=== PATIENT | male | born 1990 | race Two or more races ===

== ENCOUNTER 2017-08-02 00:58 | Emergency (ER) | payer SELFPAY ==
[~2017-08-02] VITALS: Ht 170.2 cm; Wt 90.0 kg
[2017-08-02] MEDS ORDERED: HYDROmorphone 1 MG/ML, 1ML ONE (01:14)
[2017-08-02] MEDS ORDERED: KETOROLAC 30 MG/1 ML ONE (01:14)
[2017-08-02] MEDS ORDERED: ONDANSETRON 2MG/ML, 2ML ONE (01:14)
[2017-08-02 01:24] LABS: HEMATOCRIT 49.8 % (39.2-51.8)
[2017-08-02] MEDS ORDERED: SODIUM CHLORIDE FLUSH 10ML SYR IVF ONE (01:30)
[2017-08-02] MEDS ORDERED: HYDROmorphone 1 MG/ML, 1ML IM ONE (01:30)
[2017-08-02] MEDS ORDERED: ONDANSETRON 2MG/ML, 2ML IVPush ONE (01:30)
[2017-08-02] MEDS ORDERED: SODIUM CHLORIDE 0.9% 1,000ML IV ONE (01:30)
[2017-08-02] MEDS ORDERED: KETOROLAC 30 MG/1 ML IVPush ONE (01:30)
[2017-08-02] MEDS ORDERED: HYDROmorphone 1 MG/ML, 1ML IV ONE (01:30)
[2017-08-02 01:34] LABS: ASPARTATE AMINO TRANSFERASE 32 U/L (15-37); BLOOD UREA NITROGEN 11 mg/dL (7-18)
[2017-08-02 01:41] LABS: PATH.CAST-FLAG NOT PRESENT; SPERM-FLAG NOT PRESENT; SRC-FLAG NOT PRESENT; YLC-FLAG NOT PRESENT
[2017-08-02 01:42] LABS: XTAL-FLAG NOT PRESENT
[2017-08-02 02:42] VITALS: BP 106/59
== END 2017-08-02 03:21 | disposition home or self-care (01) ==
LOC: ED 03:10
DX: N20.0 Calculus of kidney (principal)
CPT/HCPCS: 36415; 74176; 80053; 81003; 85025; 96361; 96374; 96375; 99285; J1170; J1885; J2405; J7030

== ENCOUNTER 2019-06-10 20:28 | Emergency (ER) | payer MEDICAID ==
[~2019-06-10] VITALS: Ht 172.7 cm; Wt 86.2 kg
[2019-06-10 20:33] VITALS: BP 128/93
== END 2019-06-10 22:31 | disposition home or self-care (01) ==
LOC: ED 22:00
DX: I80.01 Phlebitis and thrombophlebitis of superficial vessels of right lower extremity (principal); L03.115 Cellulitis of right lower limb
CPT/HCPCS: 99284

== ENCOUNTER 2021-05-17 19:35 | Emergency (ER) | payer MEDICAID ==
[~2021-05-17] VITALS: Ht 172.7 cm; Wt 90.0 kg
[2021-05-17] MEDS ORDERED: DIPH,PERTUSS(ACELL),TET VAC/PF 0.5 ML IM-VACC ONE ×2 (20:47→21:00)
[2021-05-17] MEDS ORDERED: LIDOCAINE-MPF 1%, 5ML ONE (20:47)
[2021-05-17] MEDS ORDERED: LORazepam 1MG TABLET ONE (20:47)
[2021-05-17] MEDS ORDERED: LIDOCAINE 1%, 10ML INFIL ONE (21:00)
[2021-05-17] MEDS ORDERED: LORazepam 1MG TABLET PO ONE (21:00)
[2021-05-17] MEDS ORDERED: BACITRACIN ZINC OINT 500U/GM, 0.9 GM ONE (21:40)
[2021-05-17] MEDS ORDERED: NEOSPORIN OINT. PKT 1 PACKET ONE (22:21)
[2021-05-17 22:35] VITALS: BP 132/78
== END 2021-05-17 22:37 | disposition home or self-care (01) ==
LOC: ED 20:05
DX: S63.125A Dislocation of interphalangeal joint of left thumb, initial encounter (principal); S61.012A Laceration without foreign body of left thumb without damage to nail, initial encounter; F17.210 Nicotine dependence, cigarettes, uncomplicated; Z72.9 Problem related to lifestyle, unspecified; V09.9XXA Pedestrian injured in unspecified transport accident, initial encounter; Y93.89 Activity, other specified; Y92.89 Other specified places as the place of occurrence of the external cause; Y99.8 Other external cause status
CPT/HCPCS: 12042; 26770; 90471; 90715; 99406